=== PATIENT | female | born 1995 | race American Indian/Alaskan Native ===

== ENCOUNTER 2022-01-15 17:29 | Emergency (ER) | payer SELFPAY ==
[2022-01-15 20:30] VITALS: BP 120/67
== END 2022-01-16 08:36 | disposition left against medical advice (07) ==
LOC: ED 17:29
DX: N63.0 Unspecified lump in unspecified breast (principal); Z53.21 Procedure and treatment not carried out due to patient leaving prior to being seen by health care provider